=== PATIENT | male | born 1980 | race Caucasian/White ===

== ENCOUNTER 2023-12-10 13:27 | Inpatient (IN) | payer BC, SELFPAY ==
[2023-12-07] VITALS (7 sets, daily range): BP systolic 108–137; BP diastolic 60–88; BMI 25.8
[2023-12-07] MEDS: ZOFRAN 4 MG IV ×2 (05:41→07:58)
[2023-12-07 05:48] LABS: % Basophils 0.6 % (0-2); % Eosinophils 1.2 % (0-6); % Immature Granulocytes 0.3 % (0-0.5); % Lymphocytes 19.6 % (20.5-51.1); % Monocytes 4.6 % (1.7-9.3); % Neutrophils 73.7 % (42.2-75.2); Absolute Basophils 0.1 10^3/uL (0-0.2); Absolute Eosinophils 0.1 10^3/uL (0-0.7); Absolute Lymphocytes 1.9 10^3/uL (1.2-3.4); Absolute Monocytes 0.5 10^3/uL (0.1-0.6); Absolute Neutrophils 7.1 10^3/uL (1.4-6.5); Hematocrit 41.8 % (39.0-52.0); Hemoglobin 14.5 g/dL (13.0-18.0); Mean Corp Hgb Conc. 34.7 g/dL (33.0-37.0); Mean Corpuscular Hgb 29.4 pg (27.0-31.0); Mean Corpuscular Volume 84.6 fL (80.0-94.0); Mean Platelet Volume 9.7 fL (7.4-10.4); Nucleated Red Blood Cells % 0 % (-); Platelet Count 317 10^3/uL (130-400); Red Blood Cell Count 4.94 10^6/uL (4.70-6.10); Red Cell Dist. Width 12.3 % (11.5-14.5); White Blood Cell Count 9.7 10^3/uL (4.8-10.8)
[2023-12-07 06:04] LABS: COVID-19 Antigen Negative (Negative)
[2023-12-07 06:15] LABS: ALT (SGPT) 17 U/L (0-50); AST (SGOT) 23 U/L (17-59); Albumin 4.7 g/dl (3.5-5.0); Alkaline Phosphatase 72 U/L (38-126); Blood Urea Nitrogen 15 mg/dl (9-20); Calcium 9.9 mg/dl (8.4-10.2); Carbon Dioxide 26 mmol/L (22-30); Chloride 100 mmol/L (98-107); Estimated Creatinine Clearance 99 ml/min; Glucose 115 mg/dl (70-99); Lipase 153 U/L (23-300); Potassium 4.5 mmol/L (3.5-5.1); Sodium 141 mmol/L (135-145); Total Bilirubin 0.3 mg/dl (0.2-1.3); Total Protein 7.5 g/dl (6.3-8.2); eGFR > 60.00
--- NOTE | 2023-12-07 06:30 | ED.GENMED ---
Addendum entered and electronically signed by Will Bardales, 12/07/23 12:13:
After Phenergan patient still states he is nauseous he is sticking his finger down his throat
PDMP noted no narcotics
Will check CT scan to rule out anything surgical or obstructive disposition is pending
Addendum entered and electronically signed by Will Bardales, 12/07/23 09:57:
Update after second liter of fluid and another dose of Zofran patient appears well his abdomen is soft and nontender is nausea is subsiding
Addendum entered and electronically signed by Will Bardales, 12/07/23 07:55:
Update prior to discharge patient states he feels nauseous again his abdomen is soft no guarding or rebound no lower abdominal tenderness will try another liter of fluid and some Zofran
Original Note:
History of Present Illness
General
Chief Complaint: Abdominal Symptoms
Source: patient
Exam Limitations: none
Time Seen by Provider: 12/07/23 06:17
History of Present Illness
History of Present Illness:
43 male with a past medical history presents with abdominal cramping nausea vomiting cramping started a day or so ago vomiting since late evening had some wine and chocolate with bread no fevers no chest pain no prior abdominal surgeries, no sick
contacts
Past History
Past History
ED Past Medical History: None
ED Past Surgical History: None
Social History
Tobacco: Non-smoker
Alcohol: Occasional
Drug: None
Personal:
Living: with family
Employment: Employed
Review of Systems
Review of Systems
All Other Systems: Not applicable
Constitutional: Denies fever or fatigue
EENT: Reports no symptoms
Respiratory: Reports no symptoms
Cardiac: Denies chest pain
ABD/GI: Reports abdominal pain, nausea and vomiting
: Reports no symptoms
Musculoskeletal: Reports no symptoms
Phy Exam
Physical Exam
Physical Exam:
Physical Exam
General: no apparent distress, not acutely ill
Neck: No jaundice
Heart: s1/s2 regular rate and rhythm, no murmur. equal radial pulses.
Lungs: no acute respiratory distress. clear bilaterally
Abdomen: Soft very mild mid upper abdominal tenderness no lower abdominal tenderness
Neuro: alert and oriented. no focal neurological deficits
Skin: no rash
Psychiatric: well kept. interactive and cooperative
Extremities: no edema.
Course
Orders/Labs/Results
Orders:
Orders
12/07/23 05:36
COVID-19 Antigen Urgent
Source: Nasal Swab
Complete Blood Count/With Diff Urgent
Comprehensive Metabolic Panel Urgent
Lipase Urgent
12/07/23 05:38
Ondansetron Injectable [Zofran] 4 mg .ROUTE .STK-MED ONE
12/07/23 05:41
Ondansetron Injectable [Zofran] 4 mg IV NOW STA
12/07/23 06:26
Electrocardiogram (*1) Urgent
Reason for Study: Abdominal Pain
EKG- Treatment ONCE
Pantoprazole [Protonix IV] 40 mg IV NOW STA
Abnormal Lab Results
12/07/23
05:36
Absolute Neuts (auto) 7.1 H 10^3/uL
(1.4-6.5)
Lymphocytes % 19.6 L %
(20.5-51.1)
Glucose 115 H mg/dl
(70-99)
12/07/23 05:36
12/07/23 05:36
Vital Signs
Initial and Last Documented VS:
Initial Vital Signs
Temp Pulse Resp BP Pulse Ox
98.0 F 68 18 117/88 100
12/07/23 05:13 12/07/23 05:13 12/07/23 05:13 12/07/23 05:13 12/07/23 05:13
Last Documented Vital Signs
Temp Pulse Resp BP Pulse Ox
98.0 F 68 20 117/88 100
12/07/23 05:13 12/07/23 05:13 12/07/23 06:00 12/07/23 05:13 12/07/23 05:13
MDM/Problems Addressed
Differential Diagnosis Includes:
Gastritis pancreatitis biliary colic less likely ACS does not appear to be obstructed
MDM/Problems Addressed:
Abdominal pain vomit
*EKG
Interpreted by ED Provider?: Yes
Interpretation: normal
Comparison EKG: no comparison EKG present
Heart Rate: 68
Rate: normal
Ischemia: no ischemia
*Industrial Economics Professor Interpretation
Rate: Industrial Economics Professor- N/A
*Critical Care Note
Total Time (30-74mins, 75-104mins- exclusive of procedures): Not Applicable
Update Note
Update Note:
Looks better after Zofran and fluids will start PPI check EKG check labs serial abdominal exam
Update labs noted EKG noted patient feeling better
ED Attending Note
-
Portions of this chart may have been created with voice recognition software.� Occasional wrong word or��sound alike� substitutions may have occurred due to the inherent limitations of voice recognition software.
Discharge Plan
Departure
Patient Disposition: Home (Routine Discharge)
Date of Disposition: 12/07/23
Time of Disposition: 07:44
Patient with high blood pressure during this ER visit?: No
Condition: Good
Discharge Problem:
Vomiting
Instructions: Nausea and Vomiting, Adult (DC), Abdominal Pain
Prescriptions:
New
pantoprazole [Protonix] 40 mg tablet,delayed release (DR/EC)
40 mg PO DAILY Qty: 20 0RF
ondansetron 4 mg tablet,disintegrating
4 mg PO TIDPRN PRN (Reason: nausea/vomiting) Qty: 14 0RF
Referrals:
Ryann Vanegas PA-C [Family Provider] -
Interventions
Interventions:
*Risk Screen - Suicide Last Done: 12/07/23 05:50
*General Assessment Last Done: 12/07/23 05:50
*Neglect/Abuse Screening Last Done: 12/07/23 05:13
ED- Fall Risk Assessment Last Done: 12/07/23 05:49
*ED COVID-19 Vaccine History Last Done: 12/07/23 05:13
XA-Brmsvq-Bcidmqalrk Assessment Last Done: 12/07/23 05:49
Discharge Date and Time
Print Language: ETHIOPIAN
[2023-12-07] MEDS: PROTONIX IV 40 MG IV (06:51)
[2023-12-07] MEDS: NSS 1000 IV ×2 (07:58→18:09)
--- NOTE | 2023-12-07 09:57 | ED.GENMED ---
History of Present Illness
<Jennifer Rapp MD - Last Filed: 12/07/23 15:41>
General
Chief Complaint: Abdominal Symptoms
Time Seen by Provider: 12/07/23 06:17
History of Present Illness
History of Present Illness:
Patient presents with several hours of persistent vomiting and abdominal pain
Past History
<Will Bardales DO - Last Filed: >
Past History
ED Past Medical History: None
ED Past Surgical History: None
Social History
Tobacco: Non-smoker
Alcohol: Occasional
Drug: None
Personal:
Living: with family
Employment: Employed
Phy Exam
<Jennifer Rapp MD - Last Filed: 12/07/23 15:41>
Physical Exam
Physical Exam:
Refer to Dr. Bardales chart
Course
<Jennifer Rapp MD - Last Filed: 12/07/23 15:41>
Orders/Labs/Results
Orders:
Orders
12/07/23 05:36
COVID-19 Antigen Urgent
Source: Nasal Swab
Complete Blood Count/With Diff Urgent
Comprehensive Metabolic Panel Urgent
Lipase Urgent
12/07/23 05:38
Ondansetron Injectable [Zofran] 4 mg .ROUTE .STK-MED ONE
12/07/23 05:41
Ondansetron Injectable [Zofran] 4 mg IV NOW STA
12/07/23 06:26
Electrocardiogram (*1) Urgent
Reason for Study: Abdominal Pain
EKG- Treatment ONCE
Pantoprazole [Protonix IV] 40 mg IV NOW STA
12/07/23 07:55
0.9% Sodium Chloride 1000 ml [Nss] 1,000 ml IV BOLUS
Ondansetron Injectable [Zofran] 4 mg IV NOW STA
12/07/23 11:01
Promethazine [Phenergan] 25 mg 0.9% Sodium Chloride 50 ml [Nss] 50 ml IV NOW
12/07/23 12:08
CT Abd/pelvis W Iv Cont Urgent
Comment:
Reason For Exam: PAIN VOMITING
Abnormal Lab Results
12/07/23
05:36
Absolute Neuts (auto) 7.1 H 10^3/uL
(1.4-6.5)
Lymphocytes % 19.6 L %
(20.5-51.1)
Glucose 115 H mg/dl
(70-99)
12/07/23 05:36
12/07/23 05:36
Vital Signs
Initial and Last Documented VS:
Initial Vital Signs
Temp Pulse Resp BP Pulse Ox
98.0 F 68 18 117/88 100
12/07/23 05:13 12/07/23 05:13 12/07/23 05:13 12/07/23 05:13 12/07/23 05:13
Last Documented Vital Signs
Temp Pulse Resp BP Pulse Ox
98.0 F 84 16 117/83 99
12/07/23 05:13 12/07/23 14:00 12/07/23 14:00 12/07/23 14:00 12/07/23 14:00
Pachecolt;Will Bardales, DO - Last Filed: >
Orders/Labs/Results
Orders:
Orders
12/07/23 05:36
COVID-19 Antigen Urgent
Source: Nasal Swab
Complete Blood Count/With Diff Urgent
Comprehensive Metabolic Panel Urgent
Lipase Urgent
12/07/23 05:38
Ondansetron Injectable [Zofran] 4 mg .ROUTE .STK-MED ONE
12/07/23 05:41
Ondansetron Injectable [Zofran] 4 mg IV NOW STA
12/07/23 06:26
Electrocardiogram (*1) Urgent
Reason for Study: Abdominal Pain
EKG- Treatment ONCE
Pantoprazole [Protonix IV] 40 mg IV NOW STA
12/07/23 07:55
0.9% Sodium Chloride 1000 ml [Nss] 1,000 ml IV BOLUS
Ondansetron Injectable [Zofran] 4 mg IV NOW STA
12/07/23 11:01
Promethazine [Phenergan] 25 mg 0.9% Sodium Chloride 50 ml [Nss] 50 ml IV NOW
12/07/23 12:08
CT Abd/pelvis W Iv Cont Urgent
Comment:
Reason For Exam: PAIN VOMITING
Abnormal Lab Results
12/07/23
05:36
Absolute Neuts (auto) 7.1 H 10^3/uL
(1.4-6.5)
Lymphocytes % 19.6 L %
(20.5-51.1)
Glucose 115 H mg/dl
(70-99)
12/07/23 05:36
12/07/23 05:36
Vital Signs
Initial and Last Documented VS:
Initial Vital Signs
Temp Pulse Resp BP Pulse Ox
98.0 F 68 18 117/88 100
12/07/23 05:13 12/07/23 05:13 12/07/23 05:13 12/07/23 05:13 12/07/23 05:13
Last Documented Vital Signs
Temp Pulse Resp BP Pulse Ox
98.0 F 84 16 117/83 99
12/07/23 05:13 12/07/23 14:00 12/07/23 14:00 12/07/23 14:00 12/07/23 14:00
<Jennifer Rapp MD - Last Filed: 12/07/23 15:41>
*Radiology
Radiology exam reviewed: radiology read reviewed
*Critical Care Note
Total Time (30-74mins, 75-104mins- exclusive of procedures): Not Applicable
<Jennifer Rapp MD - Last Filed: 12/07/23 15:41>
Patient Management
Discussion with other providers: Other (Case discussed with Dr. Martin)
Escalation/DeEscalation of care consider admission/obs:
3:[address] shows small bowel intussusception. Patient reassessed by me. He reports his pain and nausea are coming back. However, he appears nontoxic. Case discussed with Dr. Jones who agreed to admit the patient for small bowel
intussusception
ED Attending Note
<Will Bardales DO - Last Filed: >
-
Portions of this chart may have been created with voice recognition software.� Occasional wrong word or��sound alike� substitutions may have occurred due to the inherent limitations of voice recognition software.
Discharge Plan
Departure
Patient Disposition: Admit
Date of Disposition: 12/07/23
Time of Disposition: 15:40
Admit to: Med/Surg
Admit to doctor: Dr. Martin
Presentation/result/management discussed w/ accepting /DO: Dr. Martin
Patient with high blood pressure during this ER visit?: No
Condition: Good
Covid-19: Not Applicable
Discharge Problem:
Intussusception of small bowel
Prescriptions:
New
pantoprazole [Protonix] 40 mg tablet,delayed release (DR/EC)
40 mg PO DAILY Qty: 20 0RF
ondansetron 4 mg tablet,disintegrating
4 mg PO TIDPRN PRN (Reason: nausea/vomiting) Qty: 14 0RF
Referrals:
Ryann Vanegas PA-C [Family Provider] -
Interventions
Interventions:
*Risk Screen - Suicide Last Done: 12/07/23 05:50
*General Assessment Last Done: 12/07/23 05:50
*Neglect/Abuse Screening Last Done: 12/07/23 05:13
ED- Fall Risk Assessment Last Done: 12/07/23 05:49
*ED COVID-19 Vaccine History Last Done: 12/07/23 05:13
QE-Nourbr-Sfdmflumca Assessment Last Done: 12/07/23 05:49
Discharge Date and Time
Print Language: OCCITAN
[2023-12-07] MEDS: PHENERGAN 51 MG IV (11:31)
--- NOTE | 2023-12-07 16:08 | HPS.HSE ---
Family Physician
-
Family Physician: Ryann Vanegas PA-C
Chief Complaint
-
n/v/abdominal pain
History of Present Illness
Mr Edge is a 43 yo male without significant prior medical history who presented early this am with abdominal pain and associated nausea and vomiting which began last night around 10pm after a dinner of wine, chocolate and bread. He notes relief in
pain although there is still generalized pressure present. He reports that nausea has persisted. Per ED staff, attempted self inflicted vomiting but without much relief in symptoms. He denies fevers or chills. Abdomen is soft, nontender and
nondistended on exam. He is ill appearing and despite multiple antiemetics still feeling quite nauseated.
Medical History
Past Medical History
Past Medical History: Reports None
Past Surgical History: Reports None
Social History
Tobacco: Non-smoker
Alcohol: Occasional
Family History
Family History: Not pertinent
Allergies / Home Medications
Allergies reflects when Allergies were last updated in [facility].
Home Medications with original date entered in [facility]
Allergy/Medication List:
Patient Allergies
Allergy/AdvReac Type Severity Reaction Status Date / Time
No Known Allergies Allergy Verified 12/07/23 05:15
�Medication �Instructions �Recorded �Confirmed �Type
ascorbic acid (vitamin C) 500 mg 500 mg PO DAILY 12/07/23 12/07/23 History
tablet (Vitamin C)
ibuprofen 200 mg tablet (Advil) 400 mg PO Q6HPRN PRN mild pain 12/07/23 12/07/23 History
therapeutic multivitamin 1 tab PO DAILY 12/07/23 12/07/23 History
Review of Systems
-
History Source: Patient
A 12 point ROS was completed and negative except as noted: Yes
Physical Exam
Vital Signs
Vital Signs
Temp Pulse Resp BP Pulse Ox
98.0 F 84 16 117/83 99
12/07/23 05:13 12/07/23 14:00 12/07/23 14:00 12/07/23 14:00 12/07/23 14:00
Physical Exam
General: Well Developed; No Comfortable
HEENT: NormoCephalic and Moist mucous membranes
GI: Soft, Non Tender and Non Distended
Skin: Warm, Dry and Other (pale)
Neuro: Awake, Alert and AO x 3
Psych: Calm
Laboratory Results
-
12/07/23 05:36
12/07/23 05:36
Laboratory Results
Total Bilirubin 0.3 mg/dl (0.2-1.3) 12/07/23 05:36
AST 23 U/L (17-59) 12/07/23 05:36
ALT 17 U/L (0-50) 12/07/23 05:36
Alkaline Phosphatase 72 U/L (38-126) 12/07/23 05:36
Lipase 153 U/L (23-300) 12/07/23 05:36
Data Reviewed
-
CT Scan: Image Personally Visualized and interpreted, Report Reviewed by me, Discussed with Physician, Discussed with Nurse and Discussed with Patient
Lab Data: Labs Reviewed by me, Discussed with Physician, Discussed with Nurse and Discussed with Patient
Old Records: Reviewed
Impression/Plan
-
IMPRESSION:
43 yo male who developed abd pain/n/v since last night with residual 'pressure' in abdomen with benign abdominal exam. Nausea persists. Ct imaging without Po contrast reviewed with possible 7 cm area of possible small bowel intussusception. Usually
self resolving and will not likely to require surgery.
PLAN:
Place in observation for further monitoring given persistent symptoms
Place NGT to suction for decompression
Keep NPO with ice chips/sips for comfort only
IVF while NPO
Analgesics/antiemetics prn
If no improvement overnight, will plan PO contrast study
SCDs for VTE ppx
[2023-12-07] MEDS: FLUSH (NSS) 1 FLUSH IV (18:09)
--- NOTE | 2023-12-07 18:40 | PTCARENOTE ---
Addendum entered by Vero Florence RN 12/07/23 19:12:
Correction to previous note- Rt nares NGT to continuous wall suction @ 80 mm/Hg as ordered.
Original Note:
Received pt from ER via stretcher, accompanied by ER staff. Pt AAOL x3, LUQUE well, ambulatory to bed, no c/o weakness/dizziness. VSS. On room air- pulseox 98%, no SOB noted. Abd soft, sl rounded, no c/o abd discomfort. BS (+). Pt NPO except ice
chips/sips clears. Rt nares NGT placed to LIWS, patent scanty amts clear/pale yellow mucoid secretions. pt voided in BR upon arrival to unit. Knee high SCDs at bedside; pt states he will wear @ hs. IVF's NSS @ 100 ml/hr initiated via Rt AC site,
currently infusing without sx of infiltration. Oriented to 4East, currently resting in bed. Will continue to monitor.
[2023-12-08] MEDS: NSS 1000 IV ×2 (03:49→14:52)
[2023-12-08 07:30] VITALS: BP 103/68
[2023-12-08 08:27] LABS: Hematocrit 39.1 % (39.0-52.0); Hemoglobin 13.6 g/dL (13.0-18.0); Mean Corp Hgb Conc. 34.8 g/dL (33.0-37.0); Mean Corpuscular Hgb 29.4 pg (27.0-31.0); Mean Corpuscular Volume 84.4 fL (80.0-94.0); Mean Platelet Volume 10.4 fL (7.4-10.4); Platelet Count 276 10^3/uL (130-400); Red Blood Cell Count 4.63 10^6/uL (4.70-6.10); Red Cell Dist. Width 12.6 % (11.5-14.5); White Blood Cell Count 11.7 10^3/uL (4.8-10.8)
[2023-12-08] MEDS: PROTONIX IV 40 MG IV (08:30)
[2023-12-08] MEDS: NSS (PRESERVATIVE FREE) 10 ML IV (08:31)
[2023-12-08 08:48] LABS: ALT (SGPT) 15 U/L (0-50); AST (SGOT) 22 U/L (17-59); Albumin 3.9 g/dl (3.5-5.0); Alkaline Phosphatase 59 U/L (38-126); Blood Urea Nitrogen 12 mg/dl (9-20); Calcium 9.2 mg/dl (8.4-10.2); Carbon Dioxide 28 mmol/L (22-30); Chloride 105 mmol/L (98-107); Estimated Creatinine Clearance 99 ml/min; Glucose 94 mg/dl (70-99); Sodium 144 mmol/L (135-145); Total Bilirubin 0.5 mg/dl (0.2-1.3); Total Protein 6.5 g/dl (6.3-8.2); eGFR > 60.00
[2023-12-08] MEDS: OMNIPAQUE 50 ML PO (12:02)
--- NOTE | 2023-12-08 13:31 | W.PN.GS2 ---
Addendum entered and electronically signed by Juan Luis Martin MD 12/08/23 14:05:
I saw and examined the patient.
The Dialysis Biomed Technician's note was reviewed and I agree with the note.
Comment: Improved this am. Denies pain, denies n/v. He is passing flatus. Abd exam totally benign. Rpt CT with no bowel dilation, contrast has reached ascending colon. Persistent abnormal loop of bowel in somewhat different position than yesterda.
Mild new leukocytosis today. Imaging and clinical findings are incongruent. His exam is benign and he feels normal, but abnormal bowel loop persists on imaging. Plan for clamping NGT and trial CLD. If he tolerates well can DC the ngt and adv diet.
Original Note:
Today's Communication / Plan
-
CT abd/pelvis
Assessment / Plan
-
43 yo male presenting with intractable vomiting with possible small bowel intussusception on CT imaging w/o oral contrast.
AFVSS.
NGT with 750ml out overnight.
Labs stable
CT with PO contrast today
Pending CT results, will remove NGT and advance diet
IVF while NPO
analgesics/antiemetics prn
Subjective Data
-
Date of Service: December 08, 2023
Patient seen and examined at bedside with Dr. Martin. Denies n/v. Feeling much better. Denies abdominal pain.
Objective Data
-
Intake and Output
12/07/23 12/08/23 12/09/23
06:59 06:59 06:59
Intake Total 1290 / 1290
Output Total 750 / 750
Balance 540 / 540
Intake:
IV fluids (Total) 1200 / 1200
Amount instilled into GI Tube ( 90 / 90
Total)
[place] Sump 90 / 90
Output:
Gastrointestinal tube output ( 750 / 750
Total)
[place]ry Sump 400 / 400
Other:
Number of approximated MODERATE 1
amounts of urine
Vital Signs
Temp Pulse Resp BP Pulse Ox
97.6 F 63 18 103/68 97
12/08/23 07:30 12/08/23 07:30 12/08/23 07:30 12/08/23 07:30 12/07/23 23:40
Lab Results
12/08/23 07:33
12/08/23 07:33
Calcium 9.2 mg/dl (8.4-10.2) 12/08/23 07:33
Total Bilirubin 0.5 mg/dl (0.2-1.3) 12/08/23 07:33
AST 22 U/L (17-59) 12/08/23 07:33
ALT 15 U/L (0-50) 12/08/23 07:33
Alkaline Phosphatase 59 U/L (38-126) 12/08/23 07:33
Total Protein 6.5 g/dl (6.3-8.2) 12/08/23 07:33
Albumin 3.9 g/dl (3.5-5.0) 12/08/23 07:33
Physical Exam
-
NAD
ABD soft, nt, nd
NGT with light outputs
[2023-12-08 15:36] VITALS: BP 129/77
--- NOTE | 2023-12-08 15:56 | CM ---
Patient admitted with vomiting and diarrhea after eating a meal. No past medical history.
Jah lives with his in a 2 story home with 4-5 entry steps. Bed and bath on 2nd floor, powder room on main floor.
Jah is (I) amb and adls; will return home with his at discharge.
Plan: Discharge to home with no needs.
PCP: Ryann Vanegas
Pharmacy: [facility] in [place]
[2023-12-08 23:46] VITALS: BP 117/68
[2023-12-09] MEDS: CHLORASEPTIC/SORE THROAT SPRAY 2 SPRAY PO (00:34)
[2023-12-09] MEDS: NSS 1000 IV (00:39)
--- NOTE | 2023-12-09 01:50 | PTCARENOTE ---
Pt tolerating clamped NGT (clamped approx 1400 12/07). Taking and tolerating good quantity of cl liqs. Denies nausea. Pt instructed to inform staff if any nausea or other GI distress.
[2023-12-09 04:59] VITALS: BMI 25.8
--- NOTE | 2023-12-09 06:05 | PTCARENOTE ---
Pt cont to tolerate NGT clamped.
[2023-12-09 07:04] VITALS: BP 118/68
[2023-12-09 08:04] LABS: Glucose - Point of Care 111 mg/dl (70-99)
[2023-12-09] MEDS: PROTONIX IV 40 MG IV (08:55)
[2023-12-09] MEDS: NSS (PRESERVATIVE FREE) 10 ML IV (08:55)
--- NOTE | 2023-12-09 12:15 | W.PN.GS2 ---
Today's Communication / Plan
-
Trial of p.o. diet.
Possible DC today
Assessment / Plan
-
43 yo male presenting with intractable vomiting with possible small bowel intussusception that persisted on CT imaging however clinically much improved. Passing flatus and passed NG tube clamp trial tolerating liquids
Labs stable
NG tube removed, will trial p.o. diet.
If he improves we will plan for discharge with short interval diagnostic laparoscopy or if he fails to improve, will plan for diagnostic laparoscopy tomorrow.
Will continue serial abdominal exams. Patient agreeable to plan of care above.
Time Spent
Total Time Spent with Patient (in minutes): 30
Subjective Data
-
Date of Service: December 09, 2023
Interval Events:
No acute events overnight. Slept well. Pain Controlled. Denies Nausea/Vomiting, +bowel function. Tolerating diet.
Objective Data
-
Intake and Output
12/08/23 12/09/23 12/10/23
06:59 06:59 06:59
Intake Total 1290 / 1290 2400 / 2400
Output Total 750 / 750
Balance 540 / 540 2400 / 2400
Intake:
Oral fluids 1200 / 1200
IV fluids (Total) 1200 / 1200 1200 / 1200
Amount instilled into GI Tube ( 90 / 90
Total)
[place] Sump 90 / 90
Output:
Gastrointestinal tube output ( 750 / 750
Total)
[place] Sump 400 / 400
Other:
Number of approximated MODERATE 1 5
amounts of urine
Vital Signs
Temp Pulse Resp BP Pulse Ox
98 F 64 20 118/68 98
12/09/23 07:04 12/09/23 07:04 12/09/23 07:04 12/09/23 07:04 12/09/23 07:04
Lab Results
12/08/23 07:33
12/08/23 07:33
Calcium 9.2 mg/dl (8.4-10.2) 12/08/23:
Total Bilirubin 0.5 mg/dl (0.2-1.3) 12/08/23 07:33
AST 22 U/L (17-59) 12/08/23:
ALT 15 U/L (0-50) 12/08/23:
Alkaline Phosphatase 59 U/L (38-126) 12/08/23 07:33
Total Protein 6.5 g/dl (6.3-8.2) 12/08/23:
Albumin 3.9 g/dl (3.5-5.0) 12/08/23 07:33
Physical Exam
-
GENERAL/NEURO: Awake, Alert, no distress, NG tube clamped with minimal output
CHEST: Unlabored breathing on RA
ABDOMEN: Soft, Non-Tender, Non-Distended
--- NOTE | 2023-12-09 13:35 | W.PN.UPDATE ---
Update Note
Progress Note Update
Patient failed p.o. trial, now reporting nausea to nursing.
N.p.o., IV fluids.
Will plan for diagnostic laparoscopy tomorrow.
[2023-12-09 15:38] VITALS: BP 116/68
[2023-12-09 23:27] VITALS: BP 112/62
[2023-12-10] VITALS (14 sets, daily range): BP systolic 102–162; BP diastolic 56–95; BMI 26.1
--- NOTE | 2023-12-10 00:10 | PTCARENOTE ---
report given to 2s rn. belongings packed. pt transferred to [id number] via wheelchair.
--- NOTE | 2023-12-10 00:15 | PTCARENOTE ---
Received patient via wheelchair accompanied by RN, all belongings transferred with patient and in room. Oriented to new room, instructed use of call king and within reach, care ongoing.
[2023-12-10] MEDS: NSS (PRESERVATIVE FREE) 10 ML IV (08:08)
[2023-12-10] MEDS: PROTONIX IV 40 MG IV (08:08)
[2023-12-10] MEDS: FLUSH (NSS) 2 FLUSH IV (08:09)
--- NOTE | 2023-12-10 12:50 | W.SUR.PREOP ---
Pre-Operative Surgical Note
-
I have examined this patient prior to the performance of the scheduled procedure.
The patient's condition is unchanged from the time of the current History and
Physical and the patient is able to undergo the scheduled procedure.
--- NOTE | 2023-12-10 14:29 | CM ---
Case management following for discharge planning
Chart reviewed
Pt to OR today - for diagnostic laparoscopy
CM remains available for discharge needs
Plan - anticipate home no needs
--- NOTE | 2023-12-10 15:50 | W.IMMPOSTOP ---
Surgical Immed Post Op Note
-
Primary Surgeon: Audi Joshua MD
Assisting Surgeon: None
Pre-op Diagnosis: Small bowel intussusception
Post-op Diagnosis: Mildly dilated appendix
Procedure Performed:
1. Diagnostic laparoscopy
2. Laparoscopic appendectomy
Anesthesia Type: General
Specimen / Cultures: Appendix
Estimated Blood Loss: 1 cc
Complications: None
Operative Findings: Starting at the ileocecal valve and the ligament of Treves the small bowel was run in a retrograde manner all the way to the ligament of Treitz. There was no small bowel intussusception identified, and while there were areas of
dilated and decompressed loops of bowel there was no abrupt transition points and no area of erythema. No Meckel's diverticulum was identified. The abdominal wall as well as the solid organs of the liver and spleen were visualized and no
concerning masses were seen. The bowel was then run in an antegrade manner to confirm our findings. The appendix did not look infected but did appear fairly thickened so a standard laparoscopic appendectomy was performed using 2-0 PDS Endoloops.
POST OP PLAN:
Imaging: None
Labs: Routine AM
Diet: Advance to Regular as tolerated
Analgesia: Tylenol 650mg q6 Bhumi, [place] 5mg q6 PRN, Dilaudid 0.5mg q2h PRN
Neuro/vascular checks: q4h
AC/AP: Hold Therapeutic AC, Ok for DVT PPx
Activity: Ad Ariela
Wound/Incisions/Drains: Routine
Abx: None
Dispo: RNF, anticipate discharge home tomorrow pending clinical course.
--- NOTE | 2023-12-10 15:54 | OR.RPT ---
Operative Report
Operative Report
Patient Name: Jah Edge
: [] 1980
Date of Operation: [] 12/10/2023
Preoperative Diagnosis: Small bowel intussusception
Postoperative Diagnosis: Dilated appendix
Procedure(s):
Diagnostic Laparoscopy
Laparoscopic appendectomy
Surgeon(s):
Dr. Joshua
Senior Security Engineer(s):
ELPIDIO Guerrier
Anesthesia: General
Estimated Blood Loss: 1 cc
Urine Output: None
Drains/Lines/Implants: [None]
Specimens:
1. appendix
HPI/Surgical Indications:
This is a 43-year-old male who presented with abdominal pain and findings of a small bowel small bowel intussusception on CT scan. This was still present on a repeat CT scan however initially did clinically improve but then failed his advancement
of diet. Risks/Benefits/Alternatives were discussed at length, and the patient agreed to proceed with surgery.
Operative Findings: Starting at the ileocecal valve and the ligament of Treves the small bowel was run in a retrograde manner all the way to the ligament of Treitz. There was no small bowel intussusception identified, and while there were areas of
dilated and decompressed loops of bowel there was no abrupt transition points and no area of erythema. No Meckel's diverticulum was identified. The abdominal wall as well as the solid organs of the liver and spleen were visualized and no
concerning masses were seen. The bowel was then run in an antegrade manner to confirm our findings. The appendix did not look infected but did appear fairly thickened so a standard laparoscopic appendectomy was performed using 2-0 PDS Endoloops.
Procedure Description:
The patient was brought to the Operating Room and placed in the supine position with the arms out. IV antibiotics were infused and Venodyne stockings placed. Following uneventful induction of general endotracheal anesthesia, an orogastric tube
were placed. The abdomen was prepped and draped in the usual sterile fashion. The abdomen was entered using a Rimma technique with a 12 mm trochar just below the umbilicus. Pneumoperitoneum to 15 mmHg pressure was obtained without difficulty and
we confirmed that no injury had occurred during our entry. We then placed two 5 mm trocars in the right upper and right lower quadrants. The bowel was then run in a retrograde manner from the ligament of Treves to the ligament of Treitz. While
there were some mildly dilated segments of small bowel, there was no abrupt transition point. There was no erythema or masses along the small bowel and no Meckel's diverticulum was identified. We also did a cursory inspection of the solid organs
in the abdominal wall and no evidence of masses were seen. The bowel was then run in the antegrade manner from the ligament of Treitz back to the ligament of Treves to confirm our negative findings. At this point I did notice the appendix, though
not infected, was slightly thickened and elected to perform a laparoscopic appendectomy using x2 0 PDS Endoloops at the base of the appendix after dividing the mesentery with a laparoscopic bipolar energy device and placing an additional 5 mm port
in the left lower quadrant. The appendix was then placed in an Endo Catch bag. I then ran the bowel retrograde once more to truly confirm that we had not missed any pathology which we confirmed once again. At this point the three 5 mm ports were
removed under direct visualization and pneumoperitoneum was evacuated. The specimen was passed off the field and the Myers trocar was removed. The infraumbilical incision was closed with a 0 PDS [id number] suture and all port sites were
closed with 4-0 Monocryl followed by Dermabond. Overall, the patient tolerated the procedure well and was taken to the Recovery Room postoperatively in stable condition.
I was the attending physician and performed the procedure with assistance from the PST SUPERVISOR above. I was present for all portions of the case, excluding skin closure.
Audi Joshua MD
[2023-12-10] MEDS: TORADOL 10 MG IV ×2 (16:30→22:30)
--- NOTE | 2023-12-10 17:21 | PTCARENOTE ---
The patient returned to his room from [facility] post exploratory laparotomy.They did find that his appendix was enlarged so they did an appendectomy.There were no other significant findings.The patient rates his pain at a 3-4 out of 10.He is drowsy but
arousable.Vital signs are stable,All 4 lap sites are clean and dry without any drainage.The patient is in his bed with the call king in reach.
[2023-12-11 03:00] VITALS: BP 127/73
[2023-12-11 07:05] VITALS: BP 115/72
[2023-12-11] MEDS: NSS (PRESERVATIVE FREE) 10 ML IV (07:45)
[2023-12-11] MEDS: PROTONIX IV 40 MG IV (07:45)
--- NOTE | 2023-12-11 10:39 | W.PN.GS2 ---
Today's Communication / Plan
-
DC home
Assessment / Plan
-
43 yo male POD1 s/p dx lap, appendectomy
Jennie PO, pain controlled, ambulating, OK for DC home
He will see GI in f/u
Subjective Data
-
Date of Service: December 11, 2023
Jennie PO, denies n/v, passing flatus, pain controlled
Objective Data
-
Intake and Output
12/10/23 12/11/23 12/12/23
06:59 06:59 06:59
Intake Total 480 / 480 960 / 960
Balance 480 / 480 960 / 960
Intake:
Oral fluids 480 / 480 960 / 960
Other:
Number of approximated MODERATE 2 3
amounts of urine
Number of approximated LARGE 4 1
amounts of urine
Vital Signs
Temp Pulse Resp BP Pulse Ox
98.2 F 61 16 115/72 96
12/11/23 07:05 12/11/23 07:05 12/11/23 07:05 12/11/23 07:05 12/11/23 07:05
Lab Results
12/08/23 07:33
12/08/23 07:33
Calcium 9.2 mg/dl (8.4-10.2) 12/08/23 07:33
Total Bilirubin 0.5 mg/dl (0.2-1.3) 12/08/23 07:33
AST 22 U/L (17-59) 12/08/23 07:33
ALT 15 U/L (0-50) 12/08/23 07:33
Alkaline Phosphatase 59 U/L (38-126) 12/08/23 07:33
Total Protein 6.5 g/dl (6.3-8.2) 12/08/23 07:33
Albumin 3.9 g/dl (3.5-5.0) 12/08/23 07:33
Physical Exam
-
Gen: NAD
Abd: soft, approp ttp, incisions cdi
--- NOTE | 2023-12-11 10:54 | CM ---
Pt for discharge today
Chart reviewed. Met with pt
Pts will provide transport home
Plan - anticipate home no needs
[2023-12-11 11:20] VITALS: BP 111/79
--- NOTE | 2023-12-13 09:38 | W.DCSUMMARY ---
Discharge Summary
Discharge Data
Date of Admission: 12/07/23
Date of Discharge: 12/12/23
-
Pending Results: No
Hospital Course
Mr Edge is a 43 yo male who presented with intractable vomiting with possible small bowel intussusception on CT imaging. An NGT was placed with symptomatic relief; however, he failed PO challenge with return of nausea. He was taken to the OR for
diagnostic laparoscopy with no small bowel intussusception identified intraoperatively although the appendix was mildly dilated and it was therefore removed. He tolerated the procedure well with resolution of symptoms post operatively. He was
discharged to home once tolerating diet.
Discharge Plan
-
Patient Disposition: Home (Routine Discharge)
Discharge Diagnosis/Procedures: Laparoscoic appendectomy
Diet: No restrictions
Activity: No strenuous activity
Bathing Restrictions: OK to Shower
Wound Care: Allow skin glue to flake off on its own
Instructions: Appendectomy, Laparoscopic Surgery (DC)
Referrals:
Fabrice Pastrana MD [Active] - (Please ask for whichever provider has first available appt)
Ryann Vanegas PA-C [Family Provider] -
Audi Joshua MD [Active] - in two weeks
Additional Discharge Medication Instructions: Use extra strength tylenol and ibuprofen (can take 600mg or 800mg at a time if needed, always take with food) for pain.
Prescriptions:
Continued
therapeutic multivitamin Tablet
1 tab PO DAILY
Patient Comments:
does not take every day
ascorbic acid (vitamin C) [Vitamin C] 500 mg Tablet
500 mg PO DAILY PRN (Reason: cold sx)
Patient Comments:
'If I feel like it'
ibuprofen [Advil] 200 mg Tablet
400 mg PO Q6HPRN PRN (Reason: mild pain)
Discharge Orders:
Discharge Patient (As Directed); Ordered 12/11/23
Ordered By: Juan Luis Martin
Discharge Date and Time
Discharge Date/Time: 12/11/23 12:15
Print Language: WELSH
== END 2023-12-11 12:15 | disposition home or self-care (01) | DRG 399 ==
LOC: 2 SOUTH 13:27
PROVIDERS: Emergency Medicine; Registered Nurse; Surgery; ADMITTING PHYSICIAN Surgery; EMERGENCY PHYSICIAN Emergency Medicine; FAMILY PHYSICIAN Physician Assistant Medical
PROC: 0DTJ4ZZ Resection of Appendix, Percutaneous Endoscopic Approach (ICD-10-PCS; 2023-12-10)
DX: K38.8 Other specified diseases of appendix (principal)
CPT/HCPCS: 88304; 74018; 74176; 74177; 80053; 82962; 83690; 85025; 85027; 87811; 93005; 96361; 96365; 96375; 96376; 99285; C1776; Q9967